=== PATIENT | female | born 1985 | race Caucasian/White ===

== ENCOUNTER 2016-12-04 15:51 | Emergency (ER) | payer OTHER ==
[~2016-12-04] VITALS: Ht 149.9 cm; Wt 87.0 kg
[~2016-12-04 15:51] MED LIST: LEVO75TA PO; MTR600X PO; OXYC-57 PO; PRENTAB26 PO
[2016-12-04 15:52] VITALS: TEMP 36.5; Ht 149.9 cm; Wt 87.0 kg
[2016-12-04] MEDS ORDERED: PENI500T2 PO (16:22)
[2016-12-04] MEDS ORDERED: HYDR-5688 PO (16:22)
--- NOTE | 2016-12-04 16:24 | EMERGENCY ROOM VISIT NOTE ---
ED Visit Note First contact with patient: 15:58 CHIEF COMPLAINT: Toothache HISTORY OF PRESENT ILLNESS: This 31-year-old female patient presented to the emergency department with a progressive toothache for past 2 days. The patient believes it is coming from the right upper molar that she had a complex on 2 weeks ago. The pain is now steady and severe and radiates to the face. The patient does not have a dentist appointment set up, but is planning to call on Tuesday for an appointment. They rate their pain a 9/10 and the ibuprofen and Tylenol they have been taking has not relieved the pain. Denies facial swelling or fever. The patient denies any discharge from the mouth. Patient denies tobacco use. REVIEW OF SYSTEMS: A 6 system review of systems was completed with positives and pertinent negatives listed in the HPI. ALLERGIES: See chart MEDICATIONS: See chart PMH: See chart SOCIAL HISTORY: See chart PHYSICAL EXAM: Vitals are noted on the nurse's note and reviewed by myself. Vital signs stable and afebrile. GENERAL: Pleasant and cooperative, in no acute distress but does appear in some pain, non-diaphoretic, well-developed well-nourished. Mouth: The right upper 1st molar tooth has a crown but does not appear carious, tender with light tapping of the tooth. The surrounding gum is swollen and tender around it, without any discharge or signs of an abscess. The remainder of the pharynx and tonsils are without erythema, edema, or exudate. The airway is patent. There is no facial swelling, cervical or submandibular lymphadenopathy. The patient appears uncomfortable and in pain. The patient has overall good dental hygiene. EARS: External auditory canals clear, tympanic membranes pearly esteban without erythema or effusion bilaterally. NEURO: Alert and oriented 4. PERRL, EOMI. Cranial nerves II through XII grossly intact. Normal speech. Normal gait. ED COURSE: I examined the patient. She has some mild facial tenderness directly over the infected tooth, but no swelling or erythema to indicate a deep space infection or spreading cellulitis. I do suspect periapical abscess/ infection around her right upper first molar, but no drainable abscess noted. Penicillin VK to treat infection, first dose in the ED. Prescription for Wasilla to provide temporary pain relief was also provided to the patient and she was instructed to follow closely with her dentist for further management. She states she will call on Tuesday. The patient was discharged home in stable condition and ambulatory. Medication Reconciliation: I attest that I have personally reviewed the patient' s current medication list. Blood pressure screening: The patient was found to have an elevated blood pressure and was referred to their primary doctor for recheck and further treatment. Problem List Medical Problems: (1) Hypothyroidism Status: Chronic Current/Historical Medications Scheduled Ibuprofen (Advil), 400-800 MG PO prn ud Levothyroxine Sodium (Synthroid), 75 MCG PO ODD DAYS Levothyroxine Sodium (Levothyroxine Sodium), 50 MCG PO EVEN DAYS Penicillin V Potassium (Veetids), 1 TAB PO QID Sertraline HCl (Sertraline HCl), 1 TAB PO DAILY Scheduled PRN Hydrocodone/Acetaminophen 5MG/325MG (Wasilla 5MG/325MG), 1-2 TABLET PO Q6H PRN for Pain Miscellaneous Medications Amitriptyline Hcl (Elavil), 10 MG PO Allergies Coded Allergies: Metoclopramide (Verified Allergy, Severe, SHORTNESS OF BREATH, 04/10/15) HYPERTONIC (Dystonic) REACTION Azithromycin (Verified Adverse Reaction, Mild, VOMITING, 03/04/15) Morphine (Verified Adverse Reaction, Unknown, VOMITING, 03/03/15) Vital Signs Date Time Temp Pulse Resp B/P (MAP) Pulse Ox O2 Delivery O2 Flow Rate FiO2 12/04/16 16:38 95 18 145/89 98 12/04/16 15:52 36.5 88 20 136/90 97 Room Air Medications Administered Medications (Trade) Dose Ordered Sig/Isidro Route Start Time Stop Time Status Last Admin Dose Admin Penicillin V Potassium (Veetids Tab) 500 mg NOW ONCE PO 12/04/16 16:30 12/04/16 16:31 DC 12/04/16 16:26 500 MG Departure Information Impression Primary Impression: Dental infection Dispostion Home / Self-Care Condition GOOD Prescriptions Hydrocodone/Acetaminophen 5MG/325MG (Wasilla 5MG/325MG) Tab 1-2 TABLET PO Q6H Y for Pain for 3 Days, #24 TAB For Initial Treatment Prov: Georgiana Cabrera CRNP 12/04/16 Penicillin V Potassium (VEETIDS) 500 Mg Tab 1 TAB PO QID for 10 Days, #40 TAB Prov: Georgiana Cabrera CRNP 12/04/16 Referrals No Doctor, Assigned (PCP) Patient Instructions ED Abscess Dental, [facility] Additional Instructions You have been treated in the Emergency Department for Dental Pain. You have been prescribed Wasilla to be used for pain control. This is a narcotic medication. You cannot drive or consume alcohol while on this medicine. This medicine should only be used for pain that cannot be controlled with over-the- counter pain medicines. You were prescribed penicillin VK to be taken 4 times a day for 10 days to treat your infection. This is an antibiotic. All antibiotics have the potential to cause diarrhea. Stop this medication and contact a medical provider if you were to develop any significant adverse side effects including: wheezing, shortness of breath, passing out, vomiting, or a diffuse rash. Always take antibiotics as directed and COMPLETE the ENTIRE course regardless of the improvement of your symptoms. For pain control, you can use the following [id number] medicines (if >12 yo): - Extra strength (500mg/tab) Tylenol (acetaminophen) 1-2 tabs every 6-8 hours as needed. Do not exceed 6 tablets in a 24 hour period. Avoid taking more than 3 grams (3000 mg) of Tylenol per day. This includes any other sources of acetaminophen you may take on a regular basis. - Regular strength (200 mg/tab) Advil (ibuprofen) 1-2 tabs every 4-6 hours as needed. Do not exceed a dose of 3200 mg per day. Refrain from smoking cigarettes or using chewing tobacco until you have been evaluated by your dentist. Keeping beverages lukewarm and consuming soft foods can decrease your pain. Ice or warm compresses over the affected area may offer some relief. You MUST seek evaluation of your dental pain by a dentist following your visit to the Emergency Department. The Emergency Department is not capable of treating dental issues long-term. You should call your dentist as soon as possible to make an appointment for evaluation of your dental pain. Return to the emergency department if you develop the following symptoms despite treatment course outlined above: fever, intractable pain, increased redness, swelling, or purulent discharge. Work Instructions Return To Work: 3 days
[2016-12-04] MEDS ORDERED: IBUP-1050 PO (16:29)
[2016-12-04] MEDS ORDERED: LEVO50TA6 PO (16:29)
[2016-12-04] MEDS ORDERED: AMIT10TA6 PO (16:29)
[2016-12-04] MEDS ORDERED: SERT1TAB88 PO (16:29)
[2016-12-04] MEDS ORDERED: PENICILLIN V POTASSIUM 250 MG TAB PO ONE (16:30)
[2016-12-04 16:38] VITALS: BP 145/89; PULSE 95; O2SAT 98
== END 2016-12-04 16:39 | disposition home or self-care (01) ==
LOC: C.EDB 15:51 → C.EDD 16:39
DX: K04.7 Periapical abscess without sinus (principal); E03.9 Hypothyroidism, unspecified

== ENCOUNTER 2017-12-26 10:03 | Emergency (ER) | payer OTHER ==
[~2017-12-26] VITALS: Ht 149.9 cm; Wt 89.4 kg
[~2017-12-26 10:03] MED LIST changes: +AMIT10TA6 PO; +IBUP-1050 PO; +LEVO50TA6 PO; -MTR600X PO; -OXYC-57 PO; -PRENTAB26 PO; +SERT1TAB88 PO
[2017-12-26 10:07] VITALS: Ht 149.9 cm; Wt 89.4 kg
[2017-12-26] MEDS ORDERED: ONDANSETRON INJ 2 MG/ML 2 ML VIAL IV STA (10:36)
[2017-12-26] MEDS ORDERED: SODIUM CHLORIDE 0.9% 1000ML 1,000 ML IV STA (10:36)
[2017-12-26] MEDS ORDERED: PRENTAB26 PO (10:45)
[2017-12-26] MEDS ORDERED: LEVO88TA3 PO (10:45)
[2017-12-26 10:47] LABS: BASO % 0.2 %; BASO ABS # 0.02 K/uL (0-0.2); EOS ABS # 0.09 K/uL (0-0.5); HEMATOCRIT 39.2 % (37-47); HEMOGLOBIN 13.3 g/dL (12.0-16.0); IG# 0.02 K/uL (0.00-0.02); LYMPH % 14.9 %; LYMPH ABS # 1.38 K/uL (1.2-3.4); MEAN CELL VOLUME 86.7 fL (80-100); MEAN CORPUSCULAR HEMOGLOBIN 29.4 pg (25-34); MEAN CORPUSCULAR HGB CONC 33.9 g/dl (32-36); MEAN PLATELET VOLUME 9.9 fL (7.4-10.4); MONO % 4.1 %; MONO ABS # 0.38 K/uL (0.11-0.59); NEUT % 79.6 %; NEUT ABS # 7.35 K/uL (1.4-6.5); PLATELET COUNT 224 K/uL (130-400); RED CELL DISTRIBUTION WIDTH CV 14.5 % (11.5-14.5); WHITE BLOOD COUNT 9.24 K/uL (4.8-10.8)
[2017-12-26 10:57] LABS: PTT PATIENT 27.3 SECONDS (21.0-31.0)
--- NOTE | 2017-12-26 11:04 | EMERGENCY ROOM VISIT NOTE ---
History Report prepared by Jessica: Valentine Kent Under the Supervision of: Dr. Arthur Brewer D.O. First contact with patient: 10:18 Chief Complaint: NAUSEA Stated Complaint: 14 WKS,NAUSEA,VOMITING FOR AWHILE Nursing Triage Summary: patient referred by OB for nausea/vomiting, states "I've been throwing up the whole , I've lost 12 lbs, the zofran isn't working" History of Present Illness The patient is a 32 year old female who presents to the Emergency Room with complaints of worsening nausea starting a few weeks ago. The patient states that she is 14 weeks 4 days and that this is her second . She notes that she had similar symptoms during her first . The patient states that she contacted her OB this weekend after an episode of vaginal bleeding. She states that she was prescribed Zofran, but states that she believes that it is not working. The patient complains of vomiting, abdominal pain during vomiting, epistaxis, and vaginal bleeding that began this weekend. The patient describes her abdominal pain as a dull, aching, cramping pain that is a 6/10 in severity. The patient denies a cough, rhinorrhea, fever, urinary symptoms, and spotting today. The patient notes that she has a history of gestational diabetes. The patient states that she carried her first child to 40 weeks and had a caesarean section. The patient notes that during her first her baby was taken to the NICU for 10 days, but she is unsure why. Source of History: patient Onset: a few weeks ago Symptom Intensity: 6/10 Quality: other (nausea) Timing: worsening Associated Symptoms: + vomiting, + abdominal pain, No fevers, No cough, No urinary symptoms Note: The patient complains of epistasis and vaginal bleeding this weekend. The patient denies rhinorrhea and spotting today. Review of Systems See HPI for pertinent positives & negatives. A total of 10 systems reviewed and were otherwise negative. Past Medical & Surgical Medical Problems: (1) Hypothyroidism Family History FHx: cancer FHx: gallbladder disease Hypertension Social History Smoking Status: Never Smoker Alcohol Use: none Drug Use: none Marital Status: Housing Status: lives with significant other Occupation Status: employed Current/Historical Medications Scheduled Levothyroxine Sodium (Levothyroxine Sodium), 88 MCG PO DAILY Multivit/Min/Iron/Fol Ac/Pren ( Vitamin), 1 TAB PO DAILY Scheduled PRN Promethazine (Phenergan ), 1 TABS PO QID PRN for Nausea Allergies Coded Allergies: Metoclopramide (Verified Allergy, Severe, SHORTNESS OF BREATH, 12/26/17) HYPERTONIC (Dystonic) REACTION Azithromycin (Verified Adverse Reaction, Mild, VOMITING, 12/26/17) Morphine (Verified Adverse Reaction, Unknown, VOMITING, 12/26/17) Physical Exam Vital Signs Date Time Temp Pulse Resp B/P (MAP) Pulse Ox O2 Delivery O2 Flow Rate FiO2 12/26/17 15:20 82 16 135/76 99 12/26/17 14:58 83 12/26/17 14:25 84 15 111/66 98 Room Air 12/26/17 14:22 37.1 89 19 111/66 99 12/26/17 12:28 96 24 113/75 98 Room Air 12/26/17 11:33 84 12/26/17 11:03 91 12/26/17 10:41 99 Room Air 12/26/17 10:33 104 23 12/26/17 10:31 94 12/26/17 10:07 36.9 111 20 129/85 99 Room Air Physical Exam GENERAL: Sitting up in bed, alert, well appearing, well nourished, no distress, non-toxic EYE EXAM: normal conjunctiva. OROPHARYNX: no exudate, no erythema, lips, buccal mucosa, and tongue normal and mucous membranes are dry NECK: supple, no nuchal rigidity, no adenopathy, non-tender LUNGS: Clear to auscultation. Normal chest wall mechanics HEART: Tachycardic rate, no murmurs, S1 normal and S2 normal ABDOMEN: Gravid uterus below the umbilicus with faint tenderness in bilateral pelvic regions, abdomen soft, normo-active bowel sounds, no masses, no rebound or guarding. BEDSIDE US: IUP, heart rate of 156, moving all extremities. PELVIC: normal external genitalia, normal vaginal mucosa, cervix is closed, no bleeding, no discharge BACK: Back is symmetrical on inspection and there is no deformity, no midline tenderness, no CVA tenderness. SKIN: no rashes and no bruising UPPER EXTREMITIES: upper extremities are grossly normal. LOWER EXTREMITIES: No pitting edema. NEURO EXAM: Normal sensorium, cranial nerves II-XII grossly intact, normal speech, no gross weakness of arms, no gross weakness of legs. Medical Decision & Procedures ER Provider Diagnostic Interpretation: Radiology results as stated below per my review and the radiologist's interpretation: LTD 1 OR MORE FETUSES CLINICAL HISTORY: EVALUATE OB-KNITTED CLOTH EXAMINER/VAGINAL BLEEDING pelvic pain TECHNIQUE: Transabdominal as well as transvaginal evaluation COMPARISON STUDY: 10/20/2015 FINDINGS: Study confirms presence of single, viable intrauterine . heartbeat is confirmed. This may gestational age is approximately 14 weeks. position is variable. Several uterine fibroids are present measuring 1.4 to 3.0 cm respectively. Right ovary is not well seen. Left ovary measures 3 cm with normal vascular flow. IMPRESSION: 1. Single, viable intrauterine of approximately 14 weeks gestational age. 2. Several small uterine fibroids. 3. Otherwise negative study. The above report was generated using voice recognition software. It may contain grammatical, syntax or spelling errors. Electronically signed by: Tim Darnell M.D. 12/26/2017 12:30 PM Dictated Date/Time: 12/26/2017 12:24 PM Laboratory Results 12/26/17 10:20 Red Blood Count 4.52, Mean Corpuscular Volume 86.7, Mean Corpuscular Hemoglobin 29.4, Mean Corpuscular Hemoglobin Concent 33.9, Mean Platelet Volume 9.9, Neutrophils (%) (Auto) 79.6, Lymphocytes (%) (Auto) 14.9, Monocytes (%) (Auto) 4.1, Eosinophils (%) (Auto) 1.0, Basophils (%) (Auto) 0.2, Neutrophils # (Auto) 7.35, Lymphocytes # (Auto) 1.38, Monocytes # (Auto) 0.38, Eosinophils # (Auto) 0.09, Basophils # (Auto) 0.02 12/26/17 10:20 Test 12/26/17 10:20 12/26/17 12:30 White Blood Count 9.24 K/uL (4.8-10.8) Red Blood Count 4.52 M/uL (4.2-5.4) Hemoglobin 13.3 g/dL (12.0-16.0) Hematocrit 39.2 % (37-47) Mean Corpuscular Volume 86.7 fL (80-100) Mean Corpuscular Hemoglobin 29.4 pg (25-34) Mean Corpuscular Hemoglobin Concent 33.9 g/dl (32-36) Platelet Count 224 K/uL (130-400) Mean Platelet Volume 9.9 fL (7.4-10.4) Neutrophils (%) (Auto) 79.6 % Lymphocytes (%) (Auto) 14.9 % Monocytes (%) (Auto) 4.1 % Eosinophils (%) (Auto) 1.0 % Basophils (%) (Auto) 0.2 % Neutrophils # (Auto) 7.35 K/uL (1.4-6.5) Lymphocytes # (Auto) 1.38 K/uL (1.2-3.4) Monocytes # (Auto) 0.38 K/uL (0.11-0.59) Eosinophils # (Auto) 0.09 K/uL (0-0.5) Basophils # (Auto) 0.02 K/uL (0-0.2) RDW Standard Deviation 46.0 fL (36.4-46.3) RDW Coefficient of Variation 14.5 % (11.5-14.5) Immature Granulocyte % (Auto) 0.2 % Immature Granulocyte # (Auto) 0.02 K/uL (0.00-0.02) Prothrombin Time 10.2 SECONDS (9.0-12.0) Prothromb Time International Ratio 1.0 (0.9-1.1) Activated Partial Thromboplast Time 27.3 SECONDS (21.0-31.0) Partial Thromboplastin Ratio 1.1 Anion Gap 9.0 mmol/L (3-11) Est Creatinine Clear Calc Drug Dose 138.0 ml/min Estimated GFR () 142.2 Estimated GFR (Non- 122.7 BUN/Creatinine Ratio 11.4 (10-20) Calcium Level 8.8 mg/dl (8.5-10.1) Total Bilirubin 0.4 mg/dl (0.2-1) Direct Bilirubin < 0.1 mg/dl (0-0.2) Aspartate Amino Transf (AST/SGOT) 8 U/L (15-37) Alanine Aminotransferase (ALT/SGPT) 16 U/L (12-78) Alkaline Phosphatase 63 U/L (45-117) Total Protein 8.0 gm/dl (6.4-8.2) Albumin 3.6 gm/dl (3.4-5.0) Urine Color YELLOW Urine Appearance CLEAR (CLEAR) Urine pH 5.0 (4.5-7.5) Urine Specific Bradley 1.018 (1.000-1.030) Urine Protein NEG (NEG) Urine Glucose (UA) NEG (NEG) Urine Ketones 3+ (NEG) Urine Occult Blood NEG (NEG) Urine Nitrite NEG (NEG) Urine Bilirubin NEG (NEG) Urine Urobilinogen NEG (NEG) Urine Leukocyte Esterase SMALL (NEG) Urine WBC (Auto) 5-10 /hpf (0-5) Urine RBC (Auto) 0-4 /hpf (0-4) Urine Hyaline Casts (Auto) 1-5 /lpf (0-5) Urine Epithelial Cells (Auto) >30 /lpf (0-5) Urine Bacteria (Auto) NEG (NEG) Urine Test POS (NEG) Laboratory results per my review. Medications Administered Medications (Trade) Dose Ordered Sig/Isidro Route Start Time Stop Time Status Last Admin Dose Admin Ondansetron HCl (Zofran Inj) 4 mg NOW STAT IV 12/26/17 10:36 12/26/17 10:38 DC 12/26/17 10:49 4 MG Sodium Chloride 1,000 ml @ 999 mls/hr Q1H1M STAT IV 12/26/17 10:36 12/26/17 11:36 DC 12/26/17 10:45 999 MLS/HR Sodium Chloride 500 ml @ 999 mls/hr Q31M STAT IV 12/26/17 12:41 12/26/17 13:11 DC 12/26/17 12:41 999 MLS/HR Sodium Chloride 500 ml @ 999 mls/hr Q31M STAT IV 12/26/17 12:44 12/26/17 13:14 DC 12/26/17 12:44 999 MLS/HR Acetaminophen (Tylenol Tab) 1,000 mg NOW STAT PO 12/26/17 12:48 12/26/17 12:49 DC 12/26/17 12:58 1,000 MG ED Course ED COURSE: Vital signs were reviewed and showed tachycardia The patients medical record was reviewed The above diagnostic studies were performed and reviewed. ED treatments and interventions as stated above. 1028: The patient was evaluated in room C3. A complete history and physical examination was performed. 1036: Ordered NSS 1000 ml @ 999 mls/hr IV, Zofran Inj 4 mg IV. 1112: I reevaluated the patient and updated her on her results this far. 1241: Ordered NSS 500 ml @ 999 mls/hr IV. 1243: I preformed a pelvic exam on the patient at this time. 1244: Ordered NSS 500 ml @ 999 mls/hr IV. 1248: Ordered Acetaminophen 1000 mg PO. 1322: I discussed the patient's case with Dr. Mitchell -OB-KNITTED CLOTH EXAMINER. She states that the patient can follow up in the office. 1327: Upon reevaluation, the patient is resting comfortably. I discussed my findings with the patient and she understands and agrees with the treatment plan. Based on the patients age, coexisting illnesses, exam and lab findings the decision to treat as an outpatient was made. The patient remained stable while under my care. The patient appeared well at the time of discharge. Medical Decision Differential diagnoses includes but is not limited to gastritis, peptic ulcer disease, GERD, gallbladder disease, pancreatitis, small bowel obstruction, acute coronary syndrome, pericarditis, ischemic bowel, irritable bowel disease, irritable bowel syndrome, appendicitis, diverticulitis, malignancy, hernia, urinary tract infection, torsion, /ectopic , perforation, trauma, infectious. Patient is a 32-year-old female at 14 weeks and 3 days a presents the ER for lower abdominal pain. She notes that she has had morning sickness for the past 10 weeks. She notes that this is consistent with her typical symptoms was slightly worse. Zofran is not helping. She notes that when she starts vomiting she normally gets this crampy lower abdominal pain. She had some vaginal spotting over the weekend but this is resolved. She was given fluids and Zofran and had near resolution of her symptoms. She did have a mild headache and was given Tylenol. Bedside ultrasound showed heart rate and IUP at 157. Formal ultrasound was unremarkable. Discussed with OB. RhoGam was given. She was discharged to follow-up with OB within the next 1-2 days. Discussed with Pt concerning signs and symptoms to watch out for. Pt was instructed to follow up with their PCP and discussed with the patient their option to return to the ED at anytime for persistent or worsening symptoms. The appropriate anticipatory guidance and out-patient management, including indications for return to the emergency department, were explained at length to the patient and understood. Medication Reconcilliation Current Medication List: was personally reviewed by me Blood Pressure Screening Patient's blood pressure: Normal blood pressure Blood pressure disposition: Did not require urgent referral Consults Time Called: 1320 Consulting Physician: Dr. Mitchell -OB-KNITTED CLOTH EXAMINER Returned Call: 1322 I discussed the patient's case with Dr. Mitchell -OB-KNITTED CLOTH EXAMINER. She states that the patient can follow up in the office. Impression Primary Impression: Additional Impression: Vomiting Scribe Attestation The scribe's documentation has been prepared under my direction and personally reviewed by me in its entirety. I confirm that the note above accurately reflects all work, treatment, procedures, and medical decision making performed by me. Departure Information Dispostion Home / Self-Care Prescriptions Promethazine (Phenergan ) 12.5 Mg Tab 1 TABS PO QID Y for Nausea for 5 Days, TAB Prov: Arthur Brewer, DO 12/26/17 Referrals Hima aBnsal M.D. (PCP) Forms HOME CARE DOCUMENTATION FORM, IMPORTANT VISIT INFORMATION Patient Instructions My [facility] Additional Instructions Please follow up with your primary care doctor with in the next 24 hours. Any worsening of your symptoms, please return to the ED immediately. This includes any fevers greater than 100.4, worsening pain, chest pain, shortness breath, persistent nausea, vomiting, unable to eat or drink, abdominal contractions, abdominal pain, vaginal bleeding or discharge, or any other concerning signs or symptoms from your standpoint. Please take Phenergan as prescribed. Please do not take Phenergan in combination with Zofran. Problem Qualifiers Primary Impression: Weeks of gestation: unspecified Qualified Codes: Z34.90 - Encounter for supervision of normal , unspecified, unspecified trimester Additional Impression: Vomiting Vomiting type: unspecified Vomiting Intractability: unspecified Nausea presence: unspecified Qualified Codes: R11.10 - Vomiting, unspecified
[2017-12-26 11:22] LABS: ALBUMIN 3.6 gm/dl (3.4-5.0); ALKALINE PHOSPHATASE 63 U/L (45-117); ALT/SGPT 16 U/L (12-78); AST/SGOT 8 U/L (15-37); BLOOD UREA NITROGEN 7 mg/dl (7-18); CALCIUM 8.8 mg/dl (8.5-10.1); CARBON DIOXIDE 23 mmol/L (21-32); CREATININE 0.57 mg/dl (0.60-1.20); GLUCOSE 89 mg/dl (70-99); POTASSIUM 3.4 mmol/L (3.5-5.1); SODIUM 135 mmol/L (136-145)
--- NOTE | 2017-12-26 12:31 | DIAGNOSTIC IMAGING REPORT ---
LTD 1 OR MORE FETUSES CLINICAL HISTORY: EVALUATE OB-MACHINE SIGN WRITER/VAGINAL BLEEDING pelvic pain TECHNIQUE: Transabdominal as well as transvaginal evaluation COMPARISON STUDY: 10/20/2015 FINDINGS: Study confirms presence of single, viable intrauterine . heartbeat is confirmed. This may gestational age is approximately 14 weeks. position is variable. Several uterine fibroids are present measuring 1.4 to 3.0 cm respectively. Right ovary is not well seen. Left ovary measures 3 cm with normal vascular flow. IMPRESSION: 1. Single, viable intrauterine of approximately 14 weeks gestational age. 2. Several small uterine fibroids. 3. Otherwise negative study. The above report was generated using voice recognition software. It may contain grammatical, syntax or spelling errors. Electronically signed by: Tim Darnell M.D. 12/26/2017 12:30 PM Dictated Date/Time: 12/26/2017 12:24 PM
[2017-12-26] MEDS ORDERED: SODIUM CHLORIDE 0.9% 500ML 500 ML IV STA ×2 (12:41→12:44)
[2017-12-26] MEDS ORDERED: ACETAMINOPHEN 500 MG TAB PO STA (12:48)
[2017-12-26] MEDS ORDERED: PROM12.57 PO (13:26)
[2017-12-26 14:22] VITALS: BP 111/66; PULSE 89; TEMP 37.1; O2SAT 99
[2017-12-26 15:20] VITALS: BP 135/76; PULSE 82; O2SAT 99
== END 2017-12-26 15:22 | disposition home or self-care (01) ==
LOC: C.EDB 10:05 → C.EDC 15:22
DX: O21.0 Mild hyperemesis gravidarum (principal); O99.282 Endocrine, nutritional and metabolic diseases complicating pregnancy, second trimester; E03.9 Hypothyroidism, unspecified; Z79.899 Other long term (current) drug therapy; Z88.6 Allergy status to analgesic agent; Z88.1 Allergy status to other antibiotic agents; Z88.8 Allergy status to other drugs, medicaments and biological substances; Z3A.14 14 weeks gestation of pregnancy

== ENCOUNTER → 2018-01-10 | Day surgery (SDC) | payer OTHER ==
[2018-01-09 10:11] VITALS: BMI 37.0
[~2018-01-10] VITALS: Ht 152.4 cm; Wt 85.0 kg
[~2018-01-10] MED LIST changes: +ACET-1256 PO; -AMIT10TA6 PO; +ATROPINE SULFATE 0.1 MG/ML 5ML SYR IV PRN; +CHECK SCOPOLAMINE PATCH PLACEMENT SCH; +DEXAMETHASONE SOD INJ 4 MG/ML VIAL ONE; +DOXYCYCLINE HYCLATE 100 MG CAP PO SCH; +DOXYCYCLINE IV 100 MG in DEXTROSE 5% 100ML 100 ML IV ONE; +EpHEDrine SULFATE INJ 50 MG/ML AMP IV PRN; +FENTANYL CITRATE INJ 50 MCG/1 ML 2 ML VIAL IV PRN; +FENTANYL CITRATE INJ 50 MCG/1 ML 2 ML VIAL ONE; -IBUP-1050 PO; +IBUPROFEN 600 MG TAB PO PRN; +KETOROLAC TROMETHAMINE 30 MG/ML VIAL IV. PRN; +LACTATED RINGER'S 1000ML 1,000 ML IV SCH; -LEVO50TA6 PO; -LEVO75TA PO; +LEVO88TA3 PO; +LIDOCAINE HCL 2% 2 ML VIAL (20MG/ML) ONE; +MEPERIDINE HCL 25 MG/ML CARP IV PRN; +MIDAZOLAM HCL 1 MG/ML 2ML VIAL ONE; +ONDANSETRON INJ 2 MG/ML 2 ML VIAL IV PRN; +ONDANSETRON INJ 2 MG/ML 2 ML VIAL ONE; +OXYCODONE/ACETAMINOPHEN 5-325 TAB PO PRN; +PRENTAB26 PO; +PROM12.529 PO; +PROMETHAZINE HCL INJ 12.5 MG in SODIUM CHLORIDE 0.9% 50ML 50 ML IV PRN; +PROMETHAZINE HCL INJ 25 MG in SODIUM CHLORIDE 0.9% 50ML 50 ML IV PRN; +PROPOFOL IV EMULSION 10 MG/ML 20 ML VIAL ONE; +ROCURONIUM BROMIDE 10 MG/ML 5 ML VIAL ONE; +SCOPOLAMINE 1.5 MG TDSY TD ONE; +SCOPOLAMINE 1.5 MG TDSY TD SCH; -SERT1TAB88 PO; +SODIUM CHLORIDE 0.9% 1000ML 1,000 ML IV SCH; +penicillin PO
--- NOTE | 2018-01-10 10:15 | History & Physical Bridge Note ---
H&P Re-Evaluation Bridge Note: I have examined the patient, reviewed the History & Physical and in the interval since the performance of the History & Physical I have noted the following changes of clinical significance: No changes noted
[2018-01-10 10:22] VITALS: BP 136/87; PULSE 100; TEMP 37.4; O2SAT 99; Ht 152.4 cm; Wt 85.0 kg
--- NOTE | 2018-01-10 12:33 | [facility] Post Operative Brief Note ---
Immediate Operative Summary Operative Date Jan 10, 2018. Pre-Operative Diagnosis Missed Post-Operative Diagnosis Missed Procedure(s) Performed Dilation and Evacuation Surgeon Dr. Montoya Motel Front Desk Attendant Surgeon(s) NONE Estimated Blood Loss 200ml Findings Consistent with Post-Op Diagnosis Specimens A: Products of Conception Missed Drains None Anesthesia Type General Complication(s) none Disposition Accompanied Pt To Recover: no Disposition: Recovery Room / PACU
--- NOTE | 2018-01-10 12:35 | Discharge Instructions ---
Discharge Instructions Date of Service Jan 10, 2018. Visit Reason for Visit: Missed Discharge Discharge Diagnosis / Problem: Miscarriage Discharge Goals Goal(s): Specific goals Activity Recommendations Activity Limitations: per Instructions/Follow-up section Anesthesia . Post Anesthesia Instructions: If you have had General Anesthesia or IV Sedation: * Do not drive today. * Resume driving when surgeon permits. * Do not make important decisions or sign legal documents today. * Call surgeon for: 1. Temperature elevations greater than 101 degrees F. 2. Uncontrollable pain. 3. Excessive bleeding. 4. Persistent nausea and vomiting. 5. Medication intolerance (nausea, vomiting or rash). * For nausea and vomiting use only clear liquids such as: tea, soda, bouillon until nausea subsides, then gradually increase diet as tolerated. * If you have any concerns or questions, call your surgeon's office. If physician is unavailable and it is an emergency, call 911 or go to the nearest emergency room. . Instructions / Follow-Up Instructions / Follow-Up ACTIVITY RECOMMENDATIONS: * Avoid tampons, douching, hot tubs, pools, and intercourse until bleeding has stopped. * May shower as usual. * No strenuous activity for 24-48 hours. After 24-48 hours, you may do anything you feel like doing (driving and sports are okay). SPECIAL CARE INSTRUCTIONS: Special Diet: * Mild nausea may occur in the immediate post-operative period. * Take clear liquids such as tea, cola or bouillon until all nausea has subsided; you may then resume your normal diet. Special Care: * Light bleeding and vaginal spotting can last from a few days to 3-4 weeks. Call your doctor if bleeding becomes heavier than the heaviest part of your period. * Check your temperature twice a day for one week. If it goes above 100.4 degrees Fahrenheit (38.0 Celsius), notify your doctor. * Call your doctor's office for an appointment for 6 weeks after your surgery. FOLLOW-UP VISIT: Call your doctor's office for an appointment for 6 weeks after your surgery. Diet Recommendations Recommended Home Diet: resume previous diet Procedures Procedures Performed: Dilation and Evacuation Pending Studies Studies pending at discharge: no Medical Emergencies . Who to Call and When: Medical Emergencies: If at any time you feel your situation is an emergency, please call 911 immediately. . Non-Emergent Contact Non-Emergency issues call your: Primary Care Provider Call Non-Emergent contact if: you have a fever . . "Provider Documentation" section prepared by Shanta Montoya. . [place] Drug Monitoring Program Search Results: no issues identified
--- NOTE | 2018-01-10 12:55 | DIAGNOSTIC IMAGING REPORT ---
INTRAOPERATIVE ULTRASOUND IMAGES CLINICAL HISTORY: Dilatation and excision. Missed . COMPARISON STUDY: Pelvic ultrasound dated 12/26/2017. FINDINGS: 5 spot sonographic images from a dilatation and excision procedure are presented. The director of scientific research was present during the procedure. The initial 2 images show an intrauterine gestation. The final images show only trace fluid in the endometrial canal. Uterine fibroids are noted. IMPRESSION: Intraoperative images from a dilatation and excision procedure as above. See operative report for detailed findings. Electronically signed by: Fritz Gannon M.D. 01/10/2018 12:53 PM Dictated Date/Time: 01/10/2018 12:47 PM
--- NOTE | 2018-01-10 13:23 | Anesthesiology Progress Note ---
Anesthesia Post Op Note Date & Time Jan 10, 2018 at 13:23 Vital Signs Pain Intensity: 6 Vital Signs Past 12 Hours Date Time Temp Pulse Resp B/P (MAP) Pulse Ox O2 Delivery O2 Flow Rate FiO2 01/10/18 13:15 85 14 112/65 95 Nasal Cannula 2 01/10/18 13:05 90 18 111/65 98 Oxymask 10 01/10/18 12:55 84 18 106/70 98 Oxymask 10 01/10/18 12:45 36.5 91 20 112/66 96 Oxymask 10 01/10/18 10:22 37.4 100 20 136/87 (103) 99 Room Air Notes Mental Status: alert / awake / arousable, participated in evaluation Pt Amnestic to Procedure: Yes Nausea / Vomiting: adequately controlled Pain: adequately controlled Airway Patency, RR, SpO2: stable & adequate BP & HR: stable & adequate Hydration State: stable & adequate Anesthetic Complications: no major complications apparent
[2018-01-10 13:45] VITALS: BP 113/57; PULSE 87; TEMP 37.2; O2SAT 92
[2018-01-10 14:15] VITALS: BP 113/62; PULSE 82; TEMP 37; O2SAT 95
--- NOTE | 2018-01-12 15:12 | OPERATIVE REPORT ---
DATE OF OPERATION: 01/10/2018 PREOPERATIVE DIAGNOSIS: Missed at 16 weeks. POSTOPERATIVE DIAGNOSIS: Missed at 16 weeks. PROCEDURE: D and E. SURGEON: Shanta Montoya MD RESEARCH PHYSICIAN: None. ESTIMATED BLOOD LOSS: 200 mL. FINDINGS: Postop diagnosis. SPECIMENS: Products of conception for missed . DRAINS: None. ANESTHESIA: General. COMPLICATIONS: None. DISPOSITION: Stable to recovery room. Intraoperative ultrasound guidance was used to confirm that there were no heart tones and all present in the operating room agreed. DESCRIPTION OF PROCEDURE: Sandy is a 32-year-old patient who presented for routine visit at 16 weeks 2 days gestation. Unfortunately, no heart tones were identified. An ultrasound confirmed a demise at 15 weeks gestational age by crown rump length. Sandy was noted to be Rh negative; however, she had recently received RhoGAM in the ER for vaginal bleeding; therefore, was still covered by that dose. The patient was counseled on her options and elected for a D and E to remove the products of conception. She was brought to the operating room as planned, placed in the dorsal lithotomy position with candy-cane stirrups, prepped and draped in standard sterile fashion and a hard time-out was taken prior to proceeding. The bladder was emptied of urine via straight catheterization. Kumar and weighted specula were introduced to the vagina and the anterior lip of the cervix was grasped with a single-tooth tenaculum. The cervix was gently dilated using Miranda dilators graduating up from a 9-English to a 57-English. Under ultrasound guidance, Bierer's forceps were introduced. The remains were initially found to be in a cephalic presentation; however, after introduction of the Bierer's forceps, the fetus was able to be flipped into a breech presentation. The extremities were grasped and extracted. The torso was grasped and while being safely surrounded by the ovum forceps, was also extracted and finally the calvarium was safely surrounded with the ovum forceps and was decompressed and extracted. Once the skeletal parts were safely removed from the uterus, suction was then used to remove the remainder of the placental membranous and liquid contents of the uterus. This was done without complication and under direct ultrasound guidance at all times. Once this was completed, ultrasonography was used to take photographs of the uterus showing the empty cavity with the uterus well contracted. Bleeding throughout the case was remarkably little actually less than usual for a second trimester D and E and I estimate the total blood loss was intraoperatively 200 mL. There was no need to give uterotonic agents as the bleeding was minimal at all times. Once the procedure was completed, all instruments were removed from the vagina and the patient was transferred in stable condition to the recovery. I attest to the content of the Intraoperative Record and any orders documented therein. Any exception s are noted below.
== END | disposition home or self-care (01) ==
LOC: C.ACU 09:55
PROVIDERS: ATTEND Obstetrics & Gynecology
DX: O02.1 Missed abortion (principal); E66.9 Obesity, unspecified; Z88.5 Allergy status to narcotic agent; Z88.1 Allergy status to other antibiotic agents; Z79.899 Other long term (current) drug therapy

== ENCOUNTER 2019-01-16 02:53 | Inpatient (IN) ==
[2019-01-16] MEDS ORDERED: OXYTOCIN 10 UNITS/ML VIAL ONE (03:26)
[2019-01-16] MEDS ORDERED: ONDANSETRON INJ 2 MG/ML 2 ML VIAL ONE (03:26)
[2019-01-16] MEDS ORDERED: PHENYLEPHRINE 100MCG/ML 5ML SYR ONE (03:26)
[2019-01-16] MEDS ORDERED: fentaNYL citrate 100 MCG/2 ML VIAL ONE (03:29)
[2019-01-16] MEDS ORDERED: MoRPHine SULFATE PF 1 MG/ML 10 ML AMP/VIAL ONE (03:29)
[2019-01-16] MEDS ORDERED: LACTATED RINGER'S 1,000 ML IV SCH ×3 (03:30→07:00)
--- NOTE | 2019-01-16 03:31 | History & Physical Report ---
Date of Service January 16, 2019 Assessment & Plan (1) Gestational diabetes: Took insulin last night. Plan on d/c after delivery. (2) with 39 completed weeks gestation: reactive nst, category one fetus (3) Premature rupture of membranes: Plan to proceed with repeat c/s as desired by the patient. consent reviewed and signed. (4) Previous delivery affecting : History of Present Illness Chief Complaint: leaking fluid Primary Care Provider: NO PCP Patient is a with iup at 39 4/7 weeks who presents to labor and delivery complaining of rom at 1:30 am. clear. no vb. Has been jorge today but not really painful. +fm. Recently started insulin for GDM for large AC. Hx of previous c/s in 03/03 for 8#0oz baby. labs--O-/ab-/ri/rprnr/hepb-/hiv-/gc/ct-/declined genetic screening/GBS negative Allergies Allergy/AdvReac Type Severity Reaction Status Date / Time azithromycin Allergy Mild SICK TO Verified 01/15/19 15:09 [From Zithromax Z-Fareed] STOMACH metoclopramide [From Reglan] Allergy Unknown CAN'T Verified 01/15/19 15:09 REMEMBER Home Medications Home Medications Medication Instructions Recorded Confirmed Type prenat.vits,marija,[id number] 1 tab PO HS 12/22/18 01/15/19 History levothyroxine 100 mcg tablet 100 mcg PO HS 12/30/18 01/15/19 History Patient History Medical History Anxiety Depression GERD (gastroesophageal reflux disease) History of gestational diabetes History of hypothyroidism IBS (irritable bowel syndrome) Malabsorption of fructose + LACTOSE (NO CURRENT ISSUES) Surgical History Ganglion cyst LEFT WRIST History of colonoscopy History of esophagogastroduodenoscopy (EGD) Nausea and vomiting after administration of anesthetic agent S/P section X 1 S/P dilation and curettage S/P excision of ganglion cyst wrist S/P wisdom tooth extraction Status post breast reduction Family History Mother Autoimmune disorder Depression Hypothyroidism Family history of diabetes mellitus Grandmother (Maternal) Hypothyroidism Father Dyslipidemia Social History Preferred Language: Albanian Communication Ability: Effective Log Deck Tender Required: No Beliefs That Will Affect Care: None marital status: Current Living Situation: Family Other Information That Helps Us Care for You: No Feels Safe at Home: Yes Safety Concerns: Feels Safe At This Time Smoking Status: Never smoker Second Hand Exposure: Yes ( A CHILD) ; Hx Alcohol Use: No Hx Substance Use: No OB History as above, G2--01/14, sab with D&E Review of Systems All systems reviewed & are unremarkable except as noted in HPI & below Physical Exam Constitutional: WD/WN, vitals as above Gastrointestinal (Abdomen): soft, gravid, nt Psychiatric: A+Ox3, euthymic affect Genitourinary: cx--deferred grossly ruptured toco--rare contraction efm--135 wtih mod variability, accels present, no decels Results & Data Vital Signs (Past 12 Hours) Vital Signs Temp Pulse Resp BP 01/16/19 03:10 37.2 C 104 H 18 140/89 Code Status & VTE Plan VTE Prophylaxis Plan VTE Prophylaxis will be ordered: Yes
--- NOTE | 2019-01-16 03:36 | Anesthesiology Consultation ---
Date of Service January 16, 2019 Assessment & Plan Chart Review Chart Review: Acceptable Risk for Surgery and Patient NOT seen in Pre Admission Testing Consults Requested none labs pending History Surgery Operation Date: 01/16/19 03:05 Proposed Procedures p Section in LD - Nata Mitchell MD, FACOG Height/Weight Height: 5 ft Weight: 94.347 kg Allergies Allergy/AdvReac Type Severity Reaction Status Date / Time azithromycin Allergy Mild SICK TO Verified 01/15/19 15:09 [From Zithromax Z-Fareed] STOMACH metoclopramide [From Reglan] Allergy Unknown CAN'T Verified 01/15/19 15:09 REMEMBER Medications Home Medications Medication Instructions Recorded Confirmed Last Taken prenat.vits,marija,pip-qdur-wbebg 1 tab PO HS 12/22/18 01/16/19 01/15/19 21:00 levothyroxine 100 mcg tablet 100 mcg PO HS 12/30/18 01/16/19 01/15/19 21:00 Active Medications Generic Name Dose Route Start Last Admin Trade Name Mooseq PRN Reason Stop Dose Admin Lactated Ringer's 1,000 mls @ 999 mls/hr 01/16/19 03:30 01/16/19 03:31 Lr IV 01/16/19 04:30 999 mls/hr .Q1H1M STANISLAW Administration Past Medical History Medical History Anxiety Depression GERD (gastroesophageal reflux disease) History of gestational diabetes History of hypothyroidism IBS (irritable bowel syndrome) Malabsorption of fructose + LACTOSE (NO CURRENT ISSUES) Exercise / Class Metabolic Activity II 4-5 Yardwork/Stairs/Walk up hill Past Family History Family History Mother Autoimmune disorder Depression Hypothyroidism Family history of diabetes mellitus Grandmother (Maternal) Hypothyroidism Father Dyslipidemia Past Surgical History Surgical History Ganglion cyst LEFT WRIST History of colonoscopy History of esophagogastroduodenoscopy (EGD) Nausea and vomiting after administration of anesthetic agent S/P section X 1 S/P dilation and curettage S/P excision of ganglion cyst wrist S/P wisdom tooth extraction Status post breast reduction Past Anesthesia History No Hx of Anesthesia Complications and No Family Hx of Anesthesia Complications History of PONV No Hx of Motion Sickness and History of PONV Social History Smoking Status: Never smoker Hx Alcohol Use: No Hx Substance Use: No substance use type: does not use Physical Exam Vital Signs Last Vital Signs Temp 37.2 C 01/16/19 03:10 Pulse 104 H 01/16/19 03:10 Resp 18 01/16/19 03:10 BP 140/89 01/16/19 03:10
[2019-01-16] MEDS ORDERED: CITRIC ACID/SODIUM CITRATE 15 ML UDC ONE (04:03)
[2019-01-16 04:13] LABS: Basophils # (auto) 0.01 K/uL (0-0.2); Basophils % (auto) 0.1 %; Eosinophils # (auto) 0.03 K/uL (0-0.5); Eosinophils % (auto) 0.3 %; Hemoglobin 11.2 g/dL (12.0-16.0); Immature Granulocytes # (auto) 0.02 K/uL (0.00-0.02); Immature Granulocytes % (auto) 0.2 %; Lymphocytes # (auto) 1.37 K/uL (1.2-3.4); Lymphocytes % (auto) 15.9 %; Mean Corpuscular Volume 84.8 fL (80-100); Mean Platelet Volume 10.5 fL (7.4-10.4); Neutrophils # (auto) 6.58 K/uL (1.4-6.5); Neutrophils % (auto) 76.5 %; Platelet Count 182 K/uL (130-400); RDW Standard Deviation 49.1 fL (36.4-46.3); Red Blood Count 4.01 M/uL (4.2-5.4); White Blood Count 8.61 K/uL (4.8-10.8)
[2019-01-16 04:19] LABS: Mean Corpuscular Hgb Conc 32.9 g/dL (32-36)
[2019-01-16] MEDS ORDERED: MoRPHine SULFATE 2 MG/ML CARP IV PRN (04:43)
[2019-01-16] MEDS ORDERED: NALOXONE HCL 1 MG in SODIUM CHLORIDE 0.9% 1000ML 1,000 ML IV PRN (04:43)
[2019-01-16] MEDS ORDERED: ePHEDrine sulfate 50 MG/ML AMP IV PRN (04:43)
[2019-01-16] MEDS ORDERED: ONDANSETRON INJ 2 MG/ML 2 ML VIAL IV PRN ×2 (04:43→22:44)
[2019-01-16] MEDS ORDERED: NALBUPHINE HCL INJ 10 MG/ML AMP IV PRN (04:43)
[2019-01-16] MEDS ORDERED: HYDROmorphone INJ 0.5 MG/0.5 ML SYR IV PRN (04:43)
[2019-01-16] MEDS ORDERED: NALOXONE HCL 0.4 MG/1 ML VIAL/CARP IV PRN (04:43)
[2019-01-16] MEDS ORDERED: NALOXONE HCL 0.08 MG in SYRINGE 1.8 ML IV PRN (04:43)
[2019-01-16] MEDS ORDERED: MoRPHine SULFATE PF 1 MG/ML 10 ML AMP/VIAL INT SPINAL ONE (04:43)
[2019-01-16] MEDS ORDERED: LACTATED RINGER'S 500 ML IV PRN (04:43)
[2019-01-16] MEDS ORDERED: PROMETHAZINE HCL 25 MG in SODIUM CHLORIDE 0.9% 50 ML IV PRN ×2 (04:43→22:44)
[2019-01-16] MEDS ORDERED: SODIUM CHLORIDE 0.9% 1000ML 1,000 ML IV SCH (04:45)
[2019-01-16] MEDS ORDERED: DC INTRASPINAL MORPHINE SCH (04:45)
[2019-01-16] MEDS ORDERED: NO NARCOTICS OR SEDATIVES SCH (04:45)
--- NOTE | 2019-01-16 05:20 | Post Operative Brief Note ---
PG Immediate Post Op with CF Date of Surgery January 16, 2019 Pre & Post Diagnosis Operation Date: 01/16/19 03:05 Pre-Op Diagnosis: 1.IUP @ 39weeks 2.PROM 3.HX of previous section desire for repeat Post-Op Diagnosis: Same as pre operative Procedure Operation Date: 01/16/19 03:05 Actual Procedures pPrimary low transverse Section in LD(Bilateral) - Nata Mitchell MD, FACOG Surgeon Nata Mitchell MD, FACOG Car Seat Upholsterer ernestine Brown RN Estimated Blood Loss 500 Findings Consistent with Post-Op Diagnosis Specimens Specimen Description: 1. LFC at 01/16/19 0450 2.Placenta- hold 3. Cord Blood Drains Lehman Catheter
--- NOTE | 2019-01-16 05:40 | Anesthesiology Progress Note ---
Date of Service January 16, 2019 Anesthesia Post Procedure Vital Signs Vital Signs: Temp Pulse Resp BP Pulse Ox 01/16/19 05:38 83 91 01/16/19 05:35 69 100 01/16/19 05:30 94 H 119/66 100 01/16/19 03:10 37.2 C 104 H 18 140/89 Transfer of Care Handoff Completed per policy Notes Mental Status: alert / awake / arousable and participated in evaluation Patient Amnestic to Procedure: No Nausea / Vomiting: adequately controlled Pain: adequately controlled Airway Patency, RR, SpO2: stable & adequate BP & HR: stable & adequate Hydration State: stable & adequate Neuraxial Anesthesia: was administered and sensory block is resolving Anesthetic Complications: no major complications apparent and Pt Satisfied with anesthetic care
[2019-01-16] MEDS ORDERED: CEFAZOLIN 3000MG 65 ML IV SCH (06:00)
[2019-01-16] MEDS ORDERED: CITRIC ACID/SODIUM CITRATE 15 ML UDC PO SCH (06:00)
[2019-01-16] MEDS ORDERED: DIPHTHERIA/TETANUS/PERTUSSIS 0.5 ML SYR/VIAL IM ONE (07:00)
[2019-01-16] MEDS ORDERED: MAGNESIUM HYDROXIDE SUSP 30 ML UDC PO PRN (07:00)
[2019-01-16] MEDS ORDERED: SUPERCREAM 0.870% 15 GM JAR EXT PRN (07:00)
[2019-01-16] MEDS ORDERED: OXYTOCIN 20 UNITS in LACTATED RINGER'S 1,000 ML IV SCH (07:00)
[2019-01-16] MEDS ORDERED: HYDROCORTISONE ACETATE 25 MG SUPP PR PRN (07:00)
[2019-01-16] MEDS ORDERED: SENNA 8.6 MG TAB PO PRN (07:00)
[2019-01-16] MEDS ORDERED: BENZOCAINE 20% AER SPR 82.5 GM CAN EXT PRN (07:00)
[2019-01-16] MEDS: SERTRALINE HCL 50 MG TABLET PO SCH (07:37)
[2019-01-16] MEDS: DiphenhydrAMINE HCL 50 MG/ML VIAL IV PRN ×2 (08:40→14:14)
[2019-01-16] MEDS: DOCUSATE SODIUM 100 MG CAP PO SCH ×2 (08:41→20:19)
[2019-01-16] MEDS: FERROUS SULFATE 325 MG TAB PO SCH (08:41)
[2019-01-16] MEDS: SIMETHICONE 80 MG CHEW PO SCH ×4 (08:41→20:19)
[2019-01-16] MEDS: PRENATAL VITAMIN 1 TAB PO SCH (08:41)
[2019-01-16] MEDS: KETOROLAC 30 MG/ML VIAL IV PRN ×3 (08:47→21:45)
--- NOTE | 2019-01-16 09:49 | Operative Report ---
DATE OF OPERATION: 01/16/2019 PREOPERATIVE DIAGNOSES: 1. Intrauterine at 39 weeks. 2. Premature rupture of membranes prior to labor. 3. History of previous section, desires repeat. POSTOPERATIVE DIAGNOSES: 1. Intrauterine at 39 weeks. 2. Premature rupture of membranes prior to labor. 3. History of previous section, desires repeat. PROCEDURE: Repeat lower transverse section. SURGEON: Nata Mitchell MD ATTENDING UROLOGIST: Kinza Brown RN. ANESTHESIA: Spinal. ESTIMATED BLOOD LOSS: 500 mL. URINE OUTPUT: 100 mL clear yellow urine draining from the bladder at the end of the procedures. FLUIDS: 1000 mL. INDICATIONS: Sandy is a 33-year-old white female 3, para 1-0-1-1 with a history of previous section and had a scheduled repeat section for 01/18. Tonight, she presents to labor and delivery with gross rupture of membranes. FINDINGS: Viable female delivered from the cephalic presentation, Apgars pending, weight pending. Tubes and ovaries were normal bilaterally. There were several small subserosal fibroids noted on the anterior and posterior wall of the uterus. COMPLICATIONS: None. DRAINS: Lehman. DISPOSITION: To recovery room in stable condition. DESCRIPTION OF PROCEDURE: The patient was taken to the operating room where she was identified verbally and by bracelet. She was seated on the operating table where spinal anesthetic was placed. She was then placed in the supine position with a leftward tilt. A Lehman catheter was placed sterilely. She was prepped and draped in normal sterile fashion. Her anesthetic was checked and found to be adequate. A time-out was held, identifying correct patient, procedure, positioning, and preoperative antibiotic. There were no concerns. A Pfannenstiel skin incision was made with a knife and taken down to the underlying layer of fascia with knife and Bovie electrocautery. Bleeding was attended to with Bovie electrocautery. The fascia was incised in the midline with a knife and taken out laterally with scissors. The superior edge of the fascial incision was grasped, elevated and the underlying layer of rectus muscle was taken off bluntly and with scissors. In a similar fashion, the inferior edge of the fascial incision was grasped, elevated and the underlying layer of rectus muscle was taken off bluntly and with scissors. The muscles were sharply with scissors in the midline. The peritoneum was entered bluntly and was taken superiorly and inferiorly with good visualization of the bladder. The incision was then stretched. Bladder blade was placed. Bladder flap was created by grasping the vesicouterine peritoneum entering with scissors, taken out laterally with scissors and a bladder flap was created digitally. The bladder blade was replaced. Hysterotomy incision was made with the knife. It was stretched with the oakes machine operator's fingers and it was extended on the right side with bandage scissors. The oakes machine operator's hand was placed gently into the uterus. We had some difficulty delivering the head through the hysterotomy incision, so a vacuum was called for. The vacuum was placed on the head. The vacuum was placed on the head, and with 1 pull and fundal pressure, the head was delivered through the incision. The nose and mouth were bulb suctioned. A loose nuchal cord x1 was reduced and the rest of the was then delivered without difficulty. The nose and mouth were again bulb suctioned. The cord was clamped and cut, and the infant was handed off to the waiting automobile parts assembler for drying and attention. Cord blood and segment were obtained. Placenta was manually extracted. The uterus was exteriorized and cleared of all clot and debris with moistened laparotomy sponges. The hysterotomy incision was repaired with 2 stitches of 0 Vicryl, the first in a running locked layer, the second in an imbricating layer. A [id number] suture was needed in the midline for hemostasis. Posterior cul-de-sac was then cleared of all clot and debris. The uterine incision was again inspected and found to be hemostatic. The uterus was reanteriorized. The bladder blade was placed. The hysterotomy incision was again inspected and found to be hemostatic. The muscles were reapproximated in the midline using several interrupted sutures of 0 Vicryl. The fascia was reapproximated starting at the edges and meeting in the midline with 0 Vicryl. The subcuticular tissue was copiously irrigated. Bleeding was attended to with Bovie electrocautery and the skin was closed with subcuticular stitch of 4-0 Vicryl. All sponge, lap and needle counts were correct x2. The patient tolerated the procedure well and was taken to recovery room in stable condition. I attest to the content of the Intraoperative Record and any orders documented therein. Any exception s are noted below.
[2019-01-16] MEDS: LEVOTHYROXINE SODIUM 100 MCG TABLET PO SCH (20:27)
--- NOTE | 2019-01-16 20:36 | Anesthesiology Progress Note ---
Date of Service January 16, 2019 Anesthesia Post Procedure Vital Signs Vital Signs: Temp Pulse Pulse Resp BP BP Pulse Ox 01/16/19 20:29 18 95 01/16/19 19:25 36.7 C 96 H 18 119/78 95 01/16/19 19:00 18 94 01/16/19 18:52 18 95 01/16/19 17:54 36.9 C 85 20 116/70 93 01/16/19 17:50 18 97 01/16/19 17:00 18 94 01/16/19 16:00 18 94 01/16/19 14:45 18 98 01/16/19 14:00 18 99 01/16/19 13:00 18 98 01/16/19 12:15 36.9 C 75 16 108/70 99 01/16/19 12:00 16 99 01/16/19 11:00 16 99 01/16/19 10:00 16 97 01/16/19 08:50 85 18 118/74 98 01/16/19 07:50 36.9 C 74 18 117/67 98 01/16/19 07:40 69 98 01/16/19 07:35 68 98 01/16/19 07:30 69 20 98 01/16/19 07:29 80 115/75 01/16/19 07:25 72 97 01/16/19 07:20 74 98 01/16/19 07:15 73 97 01/16/19 07:10 72 97 01/16/19 07:05 71 98 01/16/19 07:00 37.0 C 77 18 100 01/16/19 06:59 68 119/79 01/16/19 06:55 71 98 01/16/19 06:50 73 98 01/16/19 06:45 73 97 01/16/19 06:40 69 97 01/16/19 06:35 74 98 01/16/19 06:30 70 98 01/16/19 06:28 36.8 C 88 18 115/61 01/16/19 06:25 73 97 01/16/19 06:20 86 97 01/16/19 06:18 71 18 114/65 01/16/19 06:15 61 98 01/16/19 06:10 73 97 01/16/19 06:08 57 L 18 112/64 01/16/19 06:05 73 97 01/16/19 06:00 66 95 01/16/19 05:58 64 18 111/63 01/16/19 05:55 66 96 01/16/19 05:50 70 96 01/16/19 05:48 81 18 121/67 01/16/19 05:45 80 96 01/16/19 05:40 84 99 01/16/19 05:39 36.7 C 64 18 128/64 01/16/19 05:38 83 91 01/16/19 05:35 69 100 01/16/19 05:30 37.0 C 70 20 119/66 96 01/16/19 03:10 37.2 C 104 H 18 140/89 Pain Intensity Bilateral Anterior Abdomen: Pain Intensity: 5 Transfer of Care Handoff Completed per policy Notes Mental Status: alert / awake / arousable Patient Amnestic to Procedure: Yes Nausea / Vomiting: adequately controlled Pain: adequately controlled Airway Patency, RR, SpO2: stable & adequate BP & HR: stable & adequate Hydration State: stable & adequate Anesthetic Complications: no major complications apparent
[2019-01-16] MEDS ORDERED: DiphenhydrAMINE HCL 50 MG/ML VIAL IV PRN (22:44)
[2019-01-16] MEDS ORDERED: KETOROLAC 30 MG/ML VIAL IV PRN (22:44)
[2019-01-16] MEDS ORDERED: MEPERIDINE HCL 50 MG/ML CARP IV PRN (22:44)
[2019-01-17] MEDS: OXYCODONE/ACETAMINOPHEN 5mg/325mg TAB PO PRN ×4 (00:02→20:59)
--- NOTE | 2019-01-17 06:04 | Obstetrical Progress Note ---
Date of Service <Veronika Patel MD - Last Filed: 01/17/19 06:47> January 17, 2019 Assessment & Plan <Veronika Patel MD - Last Filed: 01/17/19 06:47> (1) Status post : Sandy is a 33 yo on POD 1 after elective repeat C/S. - GBS - , Blood Type - , Rubella immune -Baby's blood type: A+; Rhogam ordered -Vitals reviewed and WNL; patient has been afebrile since arrival -will remove C/S dressing today -patient is doing clinically well encourage ambulation, progress diet as tolerated, provide analgesia as needed, monitor lochia - After discharge will have 6 week followup with Stephen. Subjective <Veronika Patel MD - Last Filed: 01/17/19 06:47> Ambulation: ambulating normally Voiding: no voiding problems Passing Gas:: Yes Diet Tolerance:: regular diet Lochia:: Small Feeding Type:: bottle feeding Current Pain Level(1-10): 3 patient examined at bedside Constitutional: + fever and + chills; no sweats Respiratory: no cough and no dyspnea Cardiovascular: no chest pain and no palpitations Breast: no breast pain Gastrointestinal: + abdominal pain (new RUQ pain; comes and goes; pain with inspiration); no nausea and no vomiting Genitourinary (female): no dysuria and no urinary frequency Neurologic: + headache(s) (since arrival, improved with analgesia) Physical Exam <Veronika Patel MD - Last Filed: 01/17/19 06:47> Constitutional WD/WN, vitals as above no acute distress Respiratory normal respiratory effort, lungs clear to auscultation does not use accessory muscles Auscultation: no crackles, no rhonchi, no wheezes and no pleural rub Cardiovascular Rate/Rhythm: regular rate and regular rhythm Heart Sounds: normal S1 and normal S2; no gallop, no murmur and no cardiac rub Extremities: no calf tenderness and no pedal edema Gastrointestinal (Abdomen) Inspection/Auscultation: normal bowel sounds; abdomen not distended Percussion/Palpation: abdomen soft Genitourinary Uterus: fundus firm, palpable 1 cm below the umbilicus surgical incision: dressing in place, clean and dry; appropriate post- op tenderness Results & Data <Veronika Patel MD - Last Filed: 01/17/19 06:47> Vital Signs (Past 12 Hours) Vital Signs Temp Pulse Resp BP Pulse Ox 01/17/19 04:24 36.6 C 74 16 117/79 01/17/19 00:03 36.8 C 74 16 114/74 97 01/16/19 22:10 18 96 01/16/19 21:45 18 95 01/16/19 20:29 18 95 01/16/19 19:25 36.7 C 96 H 18 119/78 95 01/16/19 19:00 18 94 01/16/19 18:52 18 95 <Lindsey Faustin DO - Last Filed: 01/17/19 08:45> Co-Signing Physician Notes Resident Physician Supervision Note: I was present with Dr. Patel during the history and exam. I discussed the case with the resident and agree with the findings and plan as documented in the note. Any exceptions or clarifications are listed here: POD#2 doing well. Increase ambulation, PO hydration today. Routine care. Documented By: Lindsey Faustin DO Resident Activity Tracking <Veronika Patel MD - Last Filed: 01/17/19 06:47> Resident Involvement: Resident Care Provided Care Provided: OB Delivery
[2019-01-17] MEDS: IBUPROFEN 600 MG TAB PO PRN ×3 (06:07→20:59)
[2019-01-17 06:36] LABS: Basophils # (auto) 0.01 K/uL (0-0.2); Basophils % (auto) 0.1 %; Eosinophils # (auto) 0.05 K/uL (0-0.5); Eosinophils % (auto) 0.7 %; Hemoglobin 9.8 g/dL (12.0-16.0); Immature Granulocytes # (auto) 0.01 K/uL (0.00-0.02); Immature Granulocytes % (auto) 0.1 %; Lymphocytes # (auto) 1.41 K/uL (1.2-3.4); Lymphocytes % (auto) 19.3 %; Mean Corpuscular Hgb Conc 32.7 g/dL (32-36); Mean Corpuscular Volume 85.7 fL (80-100); Mean Platelet Volume 10.3 fL (7.4-10.4); Monocytes # (auto) 0.52 K/uL (0.11-0.59); Monocytes % (auto) 7.1 %; Neutrophils # (auto) 5.29 K/uL (1.4-6.5); Neutrophils % (auto) 72.7 %; Platelet Count 134 K/uL (130-400); RDW Coefficient of Variation 16.2 % (11.5-14.5); RDW Standard Deviation 50.5 fL (36.4-46.3); White Blood Count 7.29 K/uL (4.8-10.8)
[2019-01-17 09:06] LABS: Albumin Level 2.1 gm/dl (3.4-5.0); BUN Creatinine Ratio 13.2 (10-20); Est GFR (African American) 144.6; Est GFR (Non-African American) 124.8; Potassium 3.7 mmol/L (3.5-5.1)
[2019-01-17 09:09] LABS: Albumin Globulin Ratio 0.6 (0.9-2); Bilirubin,Total 0.5 mg/dl (0.2-1); Globulin 3.4 gm/dl (2.5-4.0); Total Protein 5.5 gm/dl (6.4-8.2)
[2019-01-17] MEDS: DOCUSATE SODIUM 100 MG CAP PO SCH ×2 (09:24→20:46)
[2019-01-17] MEDS: SIMETHICONE 80 MG CHEW PO SCH ×4 (09:24→20:46)
[2019-01-17] MEDS: FERROUS SULFATE 325 MG TAB PO SCH (09:24)
[2019-01-17] MEDS: SERTRALINE HCL 50 MG TABLET PO SCH (09:28)
[2019-01-17] MEDS: PRENATAL VITAMIN 1 TAB PO SCH (13:07)
[2019-01-17] MEDS ORDERED: BISACODYL 5 MG TABEC PO SCH (20:00)
[2019-01-17] MEDS: LEVOTHYROXINE SODIUM 100 MCG TABLET PO SCH (20:46)
[2019-01-18] MEDS ORDERED: BISACODYL 10 MG SUPP PR PRN (05:27)
[2019-01-18] MEDS: IBUPROFEN 600 MG TAB PO PRN ×4 (06:04→22:12)
[2019-01-18] MEDS: OXYCODONE/ACETAMINOPHEN 5mg/325mg TAB PO PRN ×4 (06:05→22:13)
--- NOTE | 2019-01-18 06:58 | Obstetrical Progress Note ---
Date of Service <Veronika Patel MD - Last Filed: 01/18/19 07:00> January 18, 2019 Assessment & Plan <Veronika Patel MD - Last Filed: 01/18/19 07:00> (1) Status post : Sandy is a 33 yo on POD 2 after elective repeat C/S. - GBS - , Blood Type - , Rubella immune -Baby's blood type: A+; Rhogam administered 01/17/19 -patient has had elevated blood pressures during hospital stay; most recent pressure 131/76 -pre-eclampsia labs ordered 01/17 and returned WNL (platelets 134, Cr 0.5, AST 18, ALT 11) -given improved pressures, resolution of LANDIS and RUQ pain patient reported yesterday, and normal labs, suspicion for pre-eclampsia is low -patient is doing clinically well discharge instructions reviewed. - After discharge will have 6 week followup with Stephen. Subjective <Veronika Patel MD - Last Filed: 01/18/19 07:00> Ambulation: ambulating normally Voiding: no voiding problems Passing Gas:: Yes Diet Tolerance:: regular diet Lochia:: Small Feeding Type:: bottle feeding Current Pain Level(1-10): 2 examined at bedside Constitutional: no fever, no chills and no sweats Eyes: no worsening vision Gastrointestinal: no abdominal pain, no nausea and no vomiting Physical Exam <eVronika Patel MD - Last Filed: 01/18/19 07:00> Constitutional WD/WN, vitals as above no acute distress Respiratory normal respiratory effort, lungs clear to auscultation does not use accessory muscles Auscultation: no crackles, no rhonchi, no wheezes and no pleural rub Cardiovascular Rate/Rhythm: regular rate and regular rhythm Heart Sounds: normal S1; no gallop, no murmur and no cardiac rub Extremities: no calf tenderness and no pedal edema Gastrointestinal (Abdomen) Inspection/Auscultation: normal bowel sounds; abdomen not distended Percussion/Palpation: abdomen soft Results & Data <Veronika Patel MD - Last Filed: 01/18/19 07:00> Vital Signs (Past 12 Hours) Vital Signs Temp Pulse Resp BP 01/17/19 23:30 37 C 78 16 131/76 01/17/19 20:05 37.4 C 78 16 117/77 <Ted Saenz Jr, MD, FACOG - Last Filed: 01/18/19 07:55> Co-Signing Physician Notes Resident Physician Supervision Note: I was present with Dr. Patel during the history and exam. I discussed the case with the resident and agree with the findings and plan as documented in the note. Any exceptions or clarifications are listed here: Routine postop care Documented By: Ted Saenz Jr, MD, FACOG
[2019-01-18 07:09] LABS: Hematocrit (blood only) 30.4 % (37-47)
[2019-01-18] MEDS: DOCUSATE SODIUM 100 MG CAP PO SCH ×2 (08:49→21:13)
[2019-01-18] MEDS: FERROUS SULFATE 325 MG TAB PO SCH (08:49)
[2019-01-18] MEDS: SERTRALINE HCL 50 MG TABLET PO SCH (08:49)
[2019-01-18] MEDS: PRENATAL VITAMIN 1 TAB PO SCH (08:49)
[2019-01-18] MEDS: SIMETHICONE 80 MG CHEW PO SCH ×4 (08:49→21:13)
[2019-01-18] MEDS: LEVOTHYROXINE SODIUM 100 MCG TABLET PO SCH (21:13)
--- NOTE | 2019-01-19 07:53 | Obstetrical Progress Note ---
Date of Service January 19, 2019 Subjective Ambulation: ambulating normally Voiding: no voiding problems Passing Gas:: Yes Diet Tolerance:: regular diet Lochia:: Small Feeding Type:: breast feeding Physical Exam Constitutional WD/WN, vitals as above Cardiovascular Extremities: no calf tenderness Gastrointestinal (Abdomen) Inspection/Auscultation: + abdominal surgical incision (dry & intact, no cellulitis) Psychiatric A+Ox3, euthymic affect Genitourinary OB Exam Abdomen: + fundal height Fundus: + firm and + relation to umbilicus (2 below U) Results & Data Vital Signs (Past 12 Hours) Vital Signs Temp Pulse Resp BP Pulse Ox 01/18/19 23:50 98.1 F 72 17 130/84 98 01/18/19 21:00 98.1 F 60 17 146/100 H 98
[2019-01-19] MEDS: IBUPROFEN 600 MG TAB PO PRN ×2 (08:33→13:14)
[2019-01-19] MEDS: PRENATAL VITAMIN 1 TAB PO SCH (08:33)
[2019-01-19] MEDS: OXYCODONE/ACETAMINOPHEN 5mg/325mg TAB PO PRN ×2 (08:33→13:12)
[2019-01-19] MEDS: SIMETHICONE 80 MG CHEW PO SCH ×2 (08:33→13:12)
[2019-01-19] MEDS: FERROUS SULFATE 325 MG TAB PO SCH (08:33)
[2019-01-19] MEDS: SERTRALINE HCL 50 MG TABLET PO SCH (08:33)
[2019-01-19] MEDS: DOCUSATE SODIUM 100 MG CAP PO SCH (08:33)
--- NOTE | 2019-01-22 14:27 | Discharge Summary ---
ADMISSION DIAGNOSES: 1. Intrauterine at 39 weeks. 2. Premature rupture of membranes prior to labor. 3. History of previous section, desires repeat. DISCHARGE DIAGNOSES: 1. Intrauterine at 39 weeks. 2. Premature rupture of membranes prior to labor. 3. History of previous section, desires repeat. PROCEDURE: Repeat lower transverse section. HISTORY OF PRESENT ILLNESS: The patient is a 3, para 1-0-1-1 with an intrauterine at 39 and 4/7 weeks who presents to labor and delivery complaining of rupture of membranes at 1:30 a.m. She notes this to be clear. No vaginal bleeding. She has been jorge today but not really painful. Good movement. For the rest of the patient's detailed history and physical, please see her history and physical. On physical exam, her cervix was deferred. She was grossly ruptured. Tocodynamometer showed rare contractions. External monitor 135 with moderate variability, accels present, no decels. ASSESSMENT: This is a 3, para 1-0-1-1 with an intrauterine at 39 and 4/7 weeks with gross rupture of membranes. She has a history of previous section and desires repeat. HOSPITAL COURSE: The patient was admitted. She underwent a repeat lower transverse section without difficulty to deliver a viable female infant delivered from the cephalic presentation. Tubes and ovaries were normal bilaterally. There were several small subserosal fibroids noted on the anterior and posterior wall of the uterus. Estimated blood loss was 500 mL. The patient's and postoperative course was uncomplicated. She ambulated without difficulty, voided after the removal of her Lehman catheter, ambulated without difficulty, had her pain well controlled with oral pain medications. She was discharged home on the with routine pain medications and followup. Her discharge H and H was 10.0 and 30.4.
== END 2019-01-19 13:35 | disposition home or self-care (01) | DRG 788 ==
LOC: OPB 02:53 → 4S1 02:57 → 4S2 08:08